=== PATIENT | female | born 1990 | race American Indian/Alaskan Native ===

== ENCOUNTER 2021-08-11 19:21 | Emergency (ER) | payer BC, OTHER ==
[2021-08-11 19:45] VITALS: BP 174/116
[2021-08-11] MEDS ORDERED: TETANUS,DIPH,PERTUSS(ACELL) VACCINE 0.5 ML SYRINGE IM ONE (20:17)
[2021-08-11] MEDS ORDERED: oxyCODONE /ACETAMINOPHEN 5-325MG TAB PO ONE (20:18)
[2021-08-11] MEDS ORDERED: LIDOCAINE 1%/EPINEPHRINE 1:100,000 VIAL (20 ML) INFILTRATI ONE (20:19)
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
[2021-08-11] MEDS ORDERED: LIDOCAINE (1%) 10 MG/1 ML VIAL 20 ML MDV ONE (20:51)
--- NOTE | 2021-08-11 20:55 | XRay Report ---
CHEST 1 VIEW INDICATION / CLINICAL INFORMATION: chest pain. FINDINGS: SUPPORT DEVICES: None. HEART / MEDIASTINUM: No significant abnormality. LUNGS / PLEURA: No significant pulmonary or pleural abnormality. No pneumothorax. ADDITIONAL FINDINGS: No significant additional findings. IMPRESSION: 1. No acute findings. Signer Name: Aiden Green MD Signed: 08/11/2021 8:51 PM Workstation Name: [email or web address]
--- NOTE | 2021-08-11 20:55 | XRay Report ---
Right shoulder 3 views INDICATION: Right shoulder pain IMPRESSION: No fracture or subluxation of the right shoulder is identified. Signer Name: Aiden Green MD Signed: 08/11/2021 8:51 PM Workstation Name: [email or web address]
[2021-08-11] MEDS ORDERED: LIDOCAINE (1%) 10 MG/1 ML VIAL 20 ML MDV INFILTRATI ONE (20:58)
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
[2021-08-11] MEDS ORDERED: MORPHINE 4 MG/1 ML INJ IM ONE (22:26)
[2021-08-11] MEDS ORDERED: ONDANSETRON 4 MG ODT TAB PO ONE (22:26)
== END 2021-08-11 22:50 | disposition home or self-care (01) ==
LOC: ED 19:21
DX: S01.511A Laceration without foreign body of lip, initial encounter (principal); M25.511 Pain in right shoulder; R07.89 Other chest pain; M54.2 Cervicalgia; Y04.8XXA Assault by other bodily force, initial encounter; Y93.89 Activity, other specified; Y92.89 Other specified places as the place of occurrence of the external cause; Y99.8 Other external cause status
CPT/HCPCS: 12013; 70450; 70486; 71045; 72125; 73030; 90471; 90472; 90715; 99284; J2270; J3490; Q0162